=== PATIENT | male | born 1975 | race Caucasian/White ===

== ENCOUNTER 2021-05-26 12:19 | Inpatient (IN) | payer BC ==
[~2021-05-26] VITALS: Ht 187.9 cm; Wt 84.6 kg
[~2021-05-26 12:19] MED LIST: VICODIN ES 7501 TAB PO
[2021-05-26 12:44] VITALS: BP 146/103
[2021-05-26 13:12] LABS: BASO # 0.1 10*3/uL (0.0-0.1); BASO % 1.2 % (0.0-1.0); EOS # 0.1 10*3/uL (0.0-0.4); EOS % 1.7 % (1.0-4.0); LYMPH # 1.1 10*3/uL (1.3-4.4); LYMPH % 18.9 % (27.0-41.0); MEAN CELL VOLUME 93.4 fl (80.0-94.0); MEAN CORPUSCULAR HGB 33.2 pg (27.0-31.0); MEAN CORPUSCULAR HGB CONC 35.6 g/dl (33.0-37.0); MEAN PLATELET VOLUME 10.1 fl (9.6-12.3); MONO # 0.7 10*3/uL (0.1-1.0); MONO % 11.1 % (3.0-9.0); NEUT % 66.8 % (47.0-73.0); PLATELET COUNT AUTOMATED 233 10*3/uL (130-400); RED BLOOD COUNT 4.82 10*6/uL (4.50-5.90); RED CELL DISTRI WIDTH 11.3 % (0-14.5); WHITE BLOOD COUNT 5.9 10*3/uL (4.8-10.8)
[2021-05-26 13:22] LABS: ACT PARTIAL THROMBO TIME 27.7 SECONDS (20.0-32.1)
[2021-05-26 13:30] LABS: BUN 7 mg/dl (7-24); CHLORIDE 105 mmol/L (98-107); LIPASE 162 U/L (73-393); POTASSIUM 4.1 mmol/L (3.5-5.1); SGOT/AST 32 IU/L (3-35); SGPT/ALT 52 U/L (12-78); SODIUM 138 mmol/L (136-145); TOTAL PROTEIN 6.8 gm/dL (6.4-8.2)
[2021-05-26 13:31] LABS: ALKALINE PHOSPHATASE 123 U/L (45-117)
[2021-05-26 13:34] LABS: ETHYL ALCOHOL < 3.0 mg/dl (<3)
[2021-05-26 14:32] LABS: BILIRUBIN Negative (Negative); BLOOD Negative (Negative); CLARITY Clear (Clear); COLOR Yellow (Yellow); GLUCOSE Negative (Negative); KETONE Negative (Negative); LEUKO ESTERASE Negative (Negative); NITRITE Negative (Negative); SPECIFIC GRAVITY <= 1.005 (1.001-1.030); UROBILINOGEN 0.2 E.U./dl (0.0-1.0)
[2021-05-26 14:38] LABS: EPITHELIAL CELLS 0-2; RBC 0-2 rbc/hpf (0-2); WBC 0-2 wbc/hpf (0-5)
[2021-05-26 14:39] LABS: URINE AMPHETAMINES < 1000 (1000ng/ml); URINE BARBITURATES < 200 (200ng/ml); URINE BENZODIAZEPINES > 200 (200ng/ml); URINE CANNABINOIDS (THC) < 50 (50ng/ml); URINE COCAINE < 300 (300ng/ml); URINE METHADONE < 300 (300ng/ml); URINE OPIATES < 300 (300ng/ml)
[2021-05-26 14:42] LABS: URINE PHENCYCLIDINE < 25 (25ng/ml)
[2021-05-26 15:00] VITALS: BP 168/98
[2021-05-26] MEDS ORDERED: PLAVIX75 M1 PO (15:35)
[2021-05-26] MEDS ORDERED: TOPROL XL25 MG PO (15:36)
[2021-05-26] MEDS ORDERED: CRESTOR20 M1 PO (15:36)
[2021-05-26] MEDS ORDERED: NORVASC5 MG PO (15:37)
[2021-05-26] MEDS ORDERED: NATURE'S BLEND F1 MG PO (15:37)
[2021-05-26] MEDS ORDERED: MULTIVITAMIN1 EACH PO (15:38)
[2021-05-26] MEDS ORDERED: VITAMIN B-1100 M1 PO (15:38)
[2021-05-26] MEDS ORDERED: ALIVE PO (15:40)
[2021-05-26] MEDS ORDERED: NASAL SPRAY ORI30 ML NAS (15:41)
[2021-05-26 16:00] VITALS: BP 168/98
[2021-05-26 20:00] VITALS: BP 136/89
[2021-05-27] VITALS: BP 137/97
[2021-05-27 12:00] VITALS: BP 119/73
[2021-05-27 16:00] VITALS: BP 116/75
[2021-05-27 20:00] VITALS: BP 133/83
[2021-05-28] VITALS: BP 114/69
[2021-05-28 08:00] VITALS: BP 118/75
[2021-05-28 12:00] VITALS: BP 122/76
[2021-05-28 16:00] VITALS: BP 120/74
[2021-05-28 20:00] VITALS: BP 112/63
[2021-05-29] VITALS: BP 126/77
[2021-05-29 08:00] VITALS: BP 128/83
[2021-05-29 12:00] VITALS: BP 135/82
[2021-05-29 16:00] VITALS: BP 130/81
[2021-05-29 20:00] VITALS: BP 130/75
[2021-05-30] VITALS: BP 103/67
[2021-05-30 08:00] VITALS: BP 123/77
== END 2021-05-30 15:13 | disposition home or self-care (01) | DRG 897 ==
LOC: ED 12:19 → 4E 13:49 → EDHOLD 13:49 → 4E 14:05
PROVIDERS: Emergency Medicine; ADMIT Internal Medicine; ATTEND Internal Medicine
DX: F10.239 Alcohol dependence with withdrawal, unspecified (principal); G11.9 Hereditary ataxia, unspecified; I10 Essential (primary) hypertension; E78.5 Hyperlipidemia, unspecified; F41.1 Generalized anxiety disorder; D58.2 Other hemoglobinopathies

== ENCOUNTER 2023-03-04 14:40 | Emergency (ER) | payer BC ==
[~2023-03-04] VITALS: Wt 93.0 kg
[~2023-03-04 14:40] MED LIST changes: +ALIVE PO; +CRESTOR20 M1 PO; +MULTIVITAMIN1 EACH PO; +NASAL SPRAY ORI30 ML NAS; +NATURE'S BLEND F1 MG PO; +NORVASC5 MG PO; +PLAVIX75 M1 PO; +TOPROL XL25 MG PO; +VITAMIN B-1100 M1 PO
[2023-03-04] MEDS ORDERED: HYDROCODONE-AC1 EAC1 PO ×2 (16:35→16:54)
== END 2023-03-04 16:53 | disposition home or self-care (01) ==
LOC: ED 14:40
DX: S52.022A Displaced fracture of olecranon process without intraarticular extension of left ulna, initial encounter for closed fracture (principal); E78.5 Hyperlipidemia, unspecified; I10 Essential (primary) hypertension; E78.00 Pure hypercholesterolemia, unspecified; Z86.73 Personal history of transient ischemic attack (TIA), and cerebral infarction without residual deficits; Z98.890 Other specified postprocedural states; F10.10 Alcohol abuse, uncomplicated; W00.0XXA Fall on same level due to ice and snow, initial encounter; Y93.89 Activity, other specified; Y92.89 Other specified places as the place of occurrence of the external cause; Y99.8 Other external cause status